=== PATIENT | male | born 1985 | race Caucasian/White ===

== ENCOUNTER 2024-11-15 01:07 | Emergency (ER) | payer OTHER, SELFPAY ==
--- NOTE | ~2024-11-15 | XR_ITS ---
CLINICAL HISTORY: fall pain 3 views lumbar spine Comparison: None Findings: Normal alignment. Can not exclude mild likely chronic compression deformities at the superior endplates of L2 and L3 No significant degenerative change. IMPRESSION: Can not exclude mild likely chronic compression deformities at the superior endplates of L2 and L3 This document has been electronically signed by: Deshaun Grant MD on 11/15/2024 05:49:35
[2024-11-15 01:24] VITALS: BP 163/113; PULSE 99; RESP 20; TEMP 37.1; O2SAT 99; BMI 28.7
--- NOTE | 2024-11-15 07:18 | ED_ITS ---
HPI - Back Pain/Injury General Chief Complaint: Back Pain/Injury Stated Complaint: hurt at work Time Seen by Provider: 11/15/24 07:03 Source: patient and translator interpreter (declined wanted to use pen and paper) Mode of arrival: ambulatory Limitations: no limitations History of Present Illness ED Provider: KERRI RUIZ Narrative: 38 yo male hearing impairment uses ASL - not on blood thinners here with c/o trip and fall fell down a few stairs landing on lower back. No LOC and no numbness, weakness, saddle anesthesia, no loss of control of bowel or bladder. Patient has injury just to lower back. Did get abrasion on dorsum of R hand. 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: back injury Onset (ago): hour(s) (several) Timing: constant Severity: moderate Similar Symptoms Previously: No Quality: aching Location: lumbar spine Radiation: none Exacerbating factors: movement Relieving factors: immobilization Context: fall Associated symptoms: denies other symptoms Work related injury: Yes Related Data Previous Rx's ?Medication ?Instructions ?Recorded diazepam 5 mg tablet (Valium) 5 mg PO TID PRN muscle spasm #10 11/15/24 tabs ibuprofen 600 mg tablet 600 mg PO Q6H PRN pain #30 tabs 11/15/24 lidocaine 5 % topical patch 1 patch topical DAILY #30 ea 11/15/24 Allergies Allergy/AdvReac Type Severity Reaction Status Date / Time No Known Allergies Allergy Verified 11/15/24 01:31 [No Known Allergies*] Review of Systems Review of Systems: Constitutional : No Weight loss, No Fever, No Chills, ENT/Mouth : No Hearing loss, No Ear Pain, No Nasal Congestion, No Sinus Pain, No Hoarseness, No sore throat, No Rhinorrhea, No Swallowing Difficulty Cardiovascular : No Chest Pain, No SOB Respiratory : No Cough, No Dyspnea Gastrointestinal : No Nausea, No Vomiting, No Diarrhea, No abdominal Pain, No Hematochezia, No Melena Genitourinary : No Dysuria, No Urinary Frequency, No Hematuria, No Urinary Incontinence, Musculoskeletal : positive back pain Skin : No Skin Lesions, No rash Neuro : No Weakness, No Numbness, No Paresthesias, no loss of bowel or bladder incontinence, no saddle anesthesia all other systems reviewed and are negative PMFSH Past Medical History Attestation statement: The following information was validated with the patient. Source: old records reviewed Medical History (Updated 11/15/24 @ 07:50 by Ariana Mack DO) No pertinent past medical history Social History Social History (Updated 11/15/24 @ 07:50 by Ariana Mack DO) Patient Tobacco Use Status: Tobacco use Unknown Physical Exam Vital Signs: Vital Signs: Last Vital Signs Temp 98.8 F 11/15/24 01:24 Pulse 99 11/15/24 01:24 Resp 20 11/15/24 01:24 BP 163/113 H 11/15/24 01:24 Pulse Ox 99 11/15/24 01:24 O2 Del Method Room Air 11/15/24 01:24 BMI result Body Mass Index 28.7 Appearance: Alert. Oriented X3. No acute distress. Eyes: Pupils equal, round and reactive to light. ENT: Pharynx normal. Neck: Normal inspection. Neck supple. CVS: Normal heart rate and rhythm. Pulses normal. Respiratory: No respiratory distress. Breath sounds normal. Abdomen: Soft and nontender. Back: ttp along R and L lower paraspinals there is no contusion or step off and no signs of external trauma Skin: Skin warm and dry. Normal skin color. Normal skin turgor. Extremities: No lower extremity edema. No calf ttp R hand on dorsum very small superficial abrasion normal ROM Neuro: Oriented X 3. No motor deficit. No sensory deficit. CN2-12 intact able to ambulate slight limp but otherwise NV intact on exam Medical Decision Making Medical Decision Making MDM Narrative: 38 yo male with PMH of hearing impairment now with fall down stairs hitting low back he has no cauda equina symptoms he has no head strike or LOC. He has no concerning features on exam. At this time lumbar film ordered and discussion to follow up with work connection. No other injuries noted. Differential Diagnosis Differential Diagnoses: The differential diagnosis associated with the presentation includes strain, contusion, abrasion, fracture Admission/Observation Consideration of admission/observation: Escalation of care including admission/observation considered able to walk stable for DC Independent Interpretation I performed an independent interpretation of an: Plain X-Ray (no acute fracture) Radiology Impression Discussion of test interpretation with radiology: I have reviewed the radiologist's reading. External Record Review External record reviewed: Outpatient record Prescription Management I considered prescription management with: Pain Medication and Other Discharge Plan Discharge Clinical Impression: Strain of lumbar region, Back contusion Patient Disposition: Home, Self-Care Instructions: Acute Low Back Pain (ED), Contusion in Adults (ED) Additional Instructions: return for numbness, weakness, loss of control of bowel or bladder avoid heavy lifting more than 10lbs for 2 weeks rest and stay hydrated follow up with work connection xray shows no broken bone but there are prior old compression fractures NOT NEW at lumbar L2/L3 Prescriptions: New lidocaine 5 % adhesive patch,medicated 1 patch topical DAILY Qty: 30 0RF Rx Instructions: leave on most painful area for up to 12 hrs ibuprofen 600 mg tablet 600 mg PO Q6H PRN (Reason: pain) Qty: 30 0RF diazepam [Valium] 5 mg tablet 5 mg PO TID PRN (Reason: muscle spasm) Qty: 10 0RF Rx Instructions: partial fill is okay Referrals: [facility] [Provider Group] (call to schedule appointment) Stand Alone Forms: Work/School Release Print Language: Bahamian Sign Language
[2024-11-15 07:36] VITALS: BP 163/113; PULSE 99; RESP 20; TEMP 37.1; O2SAT 99
== END 2024-11-15 07:42 | disposition home or self-care (01) ==
LOC: HO.ED 07:39
PROVIDERS: Emergency Provider Emergency Medicine
DX: S39.012A Strain of muscle, fascia and tendon of lower back, initial encounter (principal); S30.0XXA Contusion of lower back and pelvis, initial encounter; W10.9XXA Fall (on) (from) unspecified stairs and steps, initial encounter; Y93.9 Activity, unspecified; Y92.9 Unspecified place or not applicable; Y99.8 Other external cause status
CPT/HCPCS: 72100; 99282; 99283

== ENCOUNTER → 2024-11-15 05:05 | Outpatient (BNV) | payer SELFPAY | PROVIDERS: Visit Provider Radiology Diagnostic Radiology | DX: S32.000A Wedge compression fracture of unspecified lumbar vertebra, initial encounter for closed fracture (principal) | CPT/HCPCS: 72100 ==

== ENCOUNTER → 2024-11-23 09:40 | Outpatient (BNVA) | payer OTHER, SELFPAY | PROVIDERS: Visit Provider Physician Assistant Medical | DX: S39.012A Strain of muscle, fascia and tendon of lower back, initial encounter (principal); W01.0XXA Fall on same level from slipping, tripping and stumbling without subsequent striking against object, initial encounter; M54.16 Radiculopathy, lumbar region | CPT/HCPCS: 99203 ==

== ENCOUNTER → 2024-11-27 10:02 | Outpatient (BNVA) | payer OTHER, SELFPAY | PROVIDERS: Visit Provider Physician Assistant Medical | DX: S39.012A Strain of muscle, fascia and tendon of lower back, initial encounter (principal); W01.0XXD Fall on same level from slipping, tripping and stumbling without subsequent striking against object, subsequent encounter; H91.90 Unspecified hearing loss, unspecified ear; M54.16 Radiculopathy, lumbar region | CPT/HCPCS: 99213 ==

== ENCOUNTER → 2024-12-07 11:02 | Outpatient (BNVA) | payer OTHER, SELFPAY | PROVIDERS: Visit Provider Physician Assistant Medical | DX: S39.012D Strain of muscle, fascia and tendon of lower back, subsequent encounter (principal); W01.0XXD Fall on same level from slipping, tripping and stumbling without subsequent striking against object, subsequent encounter; M48.56XA Collapsed vertebra, not elsewhere classified, lumbar region, initial encounter for fracture | CPT/HCPCS: 99213 ==

== ENCOUNTER → 2024-12-15 15:17 | Outpatient (BNVA) | payer OTHER, SELFPAY | PROVIDERS: Visit Provider Physician Assistant Medical | DX: S39.012D Strain of muscle, fascia and tendon of lower back, subsequent encounter (principal); W01.0XXD Fall on same level from slipping, tripping and stumbling without subsequent striking against object, subsequent encounter; M51.17 Intervertebral disc disorders with radiculopathy, lumbosacral region | CPT/HCPCS: 99213 ==

== ENCOUNTER → 2024-12-29 13:08 | Outpatient (BNVA) | payer OTHER, SELFPAY | PROVIDERS: Visit Provider Physician Assistant Medical | DX: S39.012D Strain of muscle, fascia and tendon of lower back, subsequent encounter (principal); W01.0XXD Fall on same level from slipping, tripping and stumbling without subsequent striking against object, subsequent encounter; M51.17 Intervertebral disc disorders with radiculopathy, lumbosacral region | CPT/HCPCS: 99213 ==

== ENCOUNTER 2025-01-09 14:32 | Outpatient (AMB) | payer OTHER, SELFPAY ==
--- NOTE | 2025-01-09 14:34 | MHC.OFFVIS ---
Vital Signs 01/09/25 14:44 Height 5 ft 10 in Weight 221 lb 6 oz BMI 31.8 BP 180/98 H Blood Pressure Location Lt brachial Position Sitting Pulse 114 H Pulse Source Pulse Oximeter Pulse Oximetry (%) 99 Oxygen Delivery Method Room Air Intake Visit Reasons: WC Back Injury Intake Note: Pain today 5/10 Business Travel Consultant Required: Yes Business Travel Consultant Language: Hairspring Ii Inspector Services: Business Travel Consultant Present Business Travel Consultant Name: [id number] Gutierrez Information Interpreted: non-clinical & clinical Allergies No Known Allergies [No Known Allergies*] Allergy (Verified 01/09/25 14:41) HPI HPI WC Back Injury: Details: The patient is a pleasant 39-year-old male presenting with back pain related to a work injury. He described that he slipped and fell on the stairs on 11/14/24, landing on his back. Initially, he experienced a sensation aviva to an electric shock from his neck down to his ankle, with severe nausea. The initial throbbing pain transformed into recurring electric shock sensations in the lower back and along the right leg. The pain now radiates down the right lateral and posterior thigh, halting before reaching the knee, coupled with a substantial pressure feeling and imbalance. Rising from a bent position significantly worsens the pain. Pain at rest 5/10 and intensifies to 9-10/10 with activities or certain movements. The patient continues to experience unsteady walking and reports worsened symptoms during activities or caring for his family and young children. He reports doing laundry which exacerbates involuntary right leg shaking and reproduces severe right sided low back pain. Physical therapy provided minimal improvement in muscle relaxation but has not mitigated the pain. He reports numbness to right buttock, lateral hip and posterior thigh with reduced sensitivity on the right side of his body. Activity exacerbations persist with no pain relief from ibuprofen or heat therapy. He completed lumbar spine MRI at [facility], [place]. Per referral notes, recent lumbar MRI showed right paracentral L5-S1 disc extrusion 8 mm displacing transiting right nerve roots. Denies previous spine surgery or injections. - Onset & Timing: Began 11/14/24, following a fall on his back at work. - Quality & Character: Initially throbbing, now like electric shock like, pressure, swelling, shooting sensations. - Primary Location: Lower back, extending to the right hip and thigh on the right side. - Radiation: Shoots down right lateral thigh, up to neck and lower head. - Exacerbating Factors: Rising from a bent position, performing household tasks, walking, prolonged walking, lifting, twisting, bending - Relieving Factors: None noted; heat, Ibuprofen, lidocaine patches slightly aid sleep. 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 - Affect: Pain affects mood and psychological well-being and sleep quality. - Analgesia: Current pain treated with heat and ibuprofen; lidocaine patches aid in sleep; physical therapy ongoing with limited relief of pain. - Adverse Effects: Concern about excessive ibuprofen intake impacting health. Avoids muscle relaxants due to drowsiness effect. - Activities of Daily Living: Pain inhibits lifting heavy objects; affected functional capacity evident. - Aberrant Drug Related Behaviors: No indicated misuse of medication. [facility] Medical History (Updated 01/09/25 @ 15:52 by SUDHA Uribe) Lumbar degenerative disc disease Rib fractures Hydronephrosis of left kidney Left renal stone Surgical History (Updated 01/09/25 @ 15:50 by SUDHA Uribe) H/O shoulder surgery (05/02/14) Social History Alcohol intake: never e-Cigarette/Vaping Use: Currently Using Frequency of e-Cigarette/Vaping Use: daily Use of substances other than those prescribed or required for medical reasons: No Review of Systems Const Details: - Musculoskeletal: Reports lower back pain, leg shaking, sensitivity reduction on the right side. - Neurological: Denies bladder or bowel dysfunction or saddle anesthesia; reports numbness and reduced sensitivity on the right leg. All systems reviewed & are unremarkable except as noted in HPI and below Physical Exam Vital Signs: Last Vital Signs Pulse 114 H 01/09/25 14:44 BP 180/98 H 01/09/25 14:44 Pulse Ox 99 01/09/25 14:44 Oxygen Delivery Method Room Air 01/09/25 14:44 BMI result Body Mass Index 31.8 General: Appears afebrile. Moderate discomfort due to back and right leg pain. Alert and oriented. Mood and affect appropriate. Follows and participates in conversation appropriately. Respiratory effort is unlabored. No cough. Able to transition from sit to stand unassisted. Ambulates with bilaterally normal heel strike and toe off, increased pain with right heel and toe standing. General: Yes no CVA tenderness Back/Spine/Pelvis Other: Limited lumnar ROM due to pain. Difficulty returning to neutral position after bending down or flexing forward due to increased pain. Mildly antalgic gait, no limping. Demonstrates 5/5 left and 4.5/5 right strength of quadriceps bilaterally as well as flexion/dorsiflexion of bilateral feet against resistance. 2+ pedal pulses bilaterally. Straight leg rise with dorsiflexion positive on the right. +2 patellar and +1 right +2 left achilles reflexes bilaterally. Decreased sensation to right lateral and anterior thigh with light touch. Facet loading test positive bilaterally. Laci?s, Pelvic compression and Stinchfield tests are positive on the right. No groin pain with I/E hip rotations. Significant paraspinals tenderness mostly on the right mid and lower back. Valsalva maneuver is positive. Back: no CVA tenderness Cervical Spine: cervical ROM normal, cervical muscular tenderness and No Cervical spine tenderness Thoracic/Lumbar Spine: thoracic and lumbar spine normal to inspection, No Thoracic/lumbar spine scar(s), Lasegue's sign positive on the right and localized, pain with thoraco-lumbar ROM, paraspinal muscle tenderness on the right greater than left, thoraco-lumbar ROM limited, No thoracic spinal tenderness, lumbar spinal tenderness (L4-S1) and straight leg raise positive right at 40 degrees Pelvis: buttock tenderness on the right Sacroiliac joints: on the right tender to palpation and on the left nontender Extrem General: Yes capillary refill normal, Yes no clubbing, cyanosis or edema and Yes no calf tenderness Results Reviewed Results Reviewed: XR lumbar spine 2-3V 11/15/24 CLINICAL HISTORY: fall pain 3 views lumbar spine Comparison: None Findings: Normal alignment. Can not exclude mild likely chronic compression deformities at the superior endplates of L2 and L3 No significant degenerative change. IMPRESSION: Can not exclude mild likely chronic compression deformities at the superior endplates of L2 and L3. Assessment & Plan Assessment & Plan (1) Work related injury: Code(s): Y99.0 - Civilian activity done for income or pay Category: Medical (2) Right lumbar radiculopathy: Code(s): M54.16 - Radiculopathy, lumbar region Category: Medical (3) Lumbar disc herniation with radiculopathy: Code(s): M51.16 - Intervertebral disc disorders with radiculopathy, lumbar region Category: Medical (4) Acute bilateral low back pain with right-sided sciatica: Code(s): M54.41 - Lumbago with sciatica, right side Category: Medical (5) Lumbar degenerative disc disease: Code(s): M51.369 - Other intervertebral disc degeneration, lumbar region without mention of lumbar back pain or lower extremity pain Category: Medical Plan We will obtain MRI imaging from [facility] and proceed with an epidural steroid injection to provide relief, with potential symptom management, possibly repeating the injection if needed. Patient prefers to avoid back surgery but is open to Neurosurgical evaluation if minimal improvement with JUSTINO. Activity modification is crucial to avoid exacerbating pain, with recommendations against lifting, twisting, or bending. If relief from the injection is insufficient, referral to a Neurosurgeon for further options is planned, although conservative management remains prioritized. Schedule Right L5-S1 TFESI with local and fluoroscopy. Expectations, risks and benefits were reviewed. Patient is aware he will be contacted to schedule this procedure. The patient will maintain current pain management with ibuprofen and lidocaine patches, monitoring for worsening symptoms. Patient is aware to call if pain worsens or if he develops any red flag symptoms to seek emergency care. Patient denies any cauda equina syndrome symptoms at this time. All questions and concerns have been answered and patient agreed with the plan. Follow up after injection and sooner as needed. Patient was informed and verbally consented to the use of an ambient scribe for clinic note documentation during this visit. Patient Instructions: I discussed with the patient probable relief measures and advised on an epidural steroid injection, which may relieve symptoms for 3 months and, if repeated, could further extend relief. Patient is hesitant towards surgical intervention and prefers to continue conservative management. I highlighted the potential for natural resolution of a disc herniation, with the body's capability for healing emphasized. I reviewed the need for activity moderation and avoiding pain producing activities. Follow-up might include a Neurosurgeon referral if non-surgical management fails to yield expected relief. Ibuprofen use will continue, with precautions on excessive use. The patient understood and agreed to the plan this outlined course. - Avoid lifting, twisting, or bending activities that may trigger pain. - Continue use of ibuprofen and lidocaine patches as outlined. - Await approval from insurance for an epidural steroid injection. - Monitor for any new symptoms, such as weakness in the right leg or difficulty controlling bowels or bladder, and seek immediate care if these develop. - Consider revisiting physical therapy exercises aimed at muscle relaxation. - Prepare for potential follow-up with a Neurosurgeon for further assessment if needed in the future. Coding Level of Care Code New Pt Level 4 (72941) Diagnoses Work related injury Y99.0 Right lumbar radiculopathy M54.16 Lumbar disc herniation with radiculopathy M51.16 Acute bilateral low back pain with right-sided sciatica M54.41 Lumbar degenerative disc disease M51.369
[2025-01-09 14:44] VITALS: BP 180/98; PULSE 114; O2SAT 99; BMI 31.8
== END 2025-01-09 15:36 | disposition home or self-care (01) ==
LOC: HO.PMC 14:32
PROVIDERS: Visit Provider Nurse Practitioner Family
DX: M51.16 Intervertebral disc disorders with radiculopathy, lumbar region (principal); Y99.0 Civilian activity done for income or pay
CPT/HCPCS: 99204

== ENCOUNTER → 2025-01-09 14:32 | Outpatient (BNVA) | payer OTHER, SELFPAY | PROVIDERS: Visit Provider Nurse Practitioner Family | DX: M51.16 Intervertebral disc disorders with radiculopathy, lumbar region (principal); M54.41 Lumbago with sciatica, right side; M51.369 Other intervertebral disc degeneration, lumbar region without mention of lumbar back pain or lower extremity pain | CPT/HCPCS: 99202 ==

== ENCOUNTER → 2025-01-12 13:17 | Outpatient (BNVA) | payer OTHER, SELFPAY | PROVIDERS: Visit Provider Physician Assistant Medical | DX: S39.012D Strain of muscle, fascia and tendon of lower back, subsequent encounter (principal); W01.0XXD Fall on same level from slipping, tripping and stumbling without subsequent striking against object, subsequent encounter; M54.16 Radiculopathy, lumbar region; M51.27 Other intervertebral disc displacement, lumbosacral region | CPT/HCPCS: 99213 ==

== ENCOUNTER 2025-01-24 11:00 | Outpatient (RCR) | payer OTHER, SELFPAY ==
--- NOTE | 2024-12-06 08:56 | MHC.PT.EP ---
[facility] [place] Office [place] Office [place] Office [address] Jg Gorman [address] [phone] F: [phone] F: [phone] F: [phone] F: [phone] Physical Therapy Plan of Care Date of Evaluation: 12/06/24 Date of Surgery: Diagnosis: R lumbar strain, radiculopathy Assessment: Patient is a 38 year old R handed male who presents with s/s consistent with R lumbar strain - radiculopathy, low back pain. 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 Does not lift too often. Patient past medical history includes asthma, shoulder surgery and back pain. Current impairments include pain, posture, ROM, flexibility, strength, activity tolerance and functional mobility. Functional limitations include decreased ability to stand, bend, sit, lift, transfer, carry, and sleep. Patient is motivated with good rehab potential. Skilled PT will address impairments and functional limitations in order to achieve goals. Frequency and Duration: The patient will be seen 2x/week for 5 weeks. Short Term Goals: I with HEP -2 weeks AROM rotation 75% and pain free - 3 weeks AROM flex and ext 75% and pain free - 3 weeks s/s centralized - 3 weeks Cloth Bolt Bander Goals: Pain free return to work - 5 weeks Oswestry 16% or less - 5 weeks Pain free return to ADLs - 5 weeks 90/90 lacking 20 or less - 5 weeks Undisturbed sleep - 5 weeks Treatment Plan: Modalities to reduce pain, spasms and effusion. Manual therapy to restore motion and function. Therapeutic exercise to improve strength and flexibility. Neuromuscular re-education for posture and balance. Therapeutic activities to return to functional activities of daily living. Electronically signed by: Peter Orozco, PT Please sign and return to therapist. Thank you for your referral.
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
== END 2025-02-22 13:52 | disposition home or self-care (01) ==
LOC: HO.PTCHIC 11:00
PROVIDERS: Visit Provider Physician Assistant Medical
DX: M54.16 Radiculopathy, lumbar region (principal); S39.012D Strain of muscle, fascia and tendon of lower back, subsequent encounter
CPT/HCPCS: 97014; 97110; 97140; 97162

== ENCOUNTER 2025-01-31 12:12 | Emergency (ER) | payer OTHER, SELFPAY ==
--- NOTE | ~2025-01-31 | CT_ITS ---
EXAMINATION: CT LUMBAR SPINE WITHOUT CONTRAST CLINICAL INFORMATION: Right low back pain. COMPARISON: Correlated to x-ray dated November 15, 2024 and MRI dated August 26, 2010. TECHNIQUE: Contiguous axial images through the lumbar spine using 2 mm collimation with bone and soft tissue algorithm. Sagittal and coronal reformatted images acquired using bone algorithm only. This CT examination was performed using dose optimization techniques as appropriate, variously including the following: *Automated exposure control *Adjustment of mA and/or kV according to patient size (this includes techniques or standardized protocols for targeted exams where dose is matched to indication/reason for exam; i.e. extremities or head) *Use of iterative reconstruction technique DLP: 489 mGy centimeter. FINDINGS: Last rib-bearing vertebra labeled T12. The examination is limited for the soft tissue component centered in the neural elements. There is a superior endplate compression deformity with a Schmorl node at the vertebral body of L3. No acute cortical disruption. No gross malalignment. There is facet joint hypertrophy at L4-5 and L5-S1. There is no lysis of the pars interarticularis. There is sclerosis in the right pars interarticularis L5. No gross prevertebral compartment hematoma, masses or fluid collections. T12-L1: No gross central spinal canal stenosis. L1-2: No gross central spinal canal stenosis. L2-3: Broad-based disc bulging. Ligamentum flavum hypertrophy. L3-4: Broad-based disc bulging. Ligamentum flavum hypertrophy. Reduced AP diameter of the central spinal canal. L4-5: Broad-based disc bulging. Ligamentum flavum hypertrophy. Central spinal canal stenosis and likely bilateral neuroforamina stenosis. L5-S1: Right-sided broad-based disc bulging versus disc herniation extending into the right foramen, likely compressing the right S1 and right L5 nerve roots. The abdominal aorta demonstrates normal diameter. No gross hydronephrosis in either kidney. CT/CT lumbar spine wo IV con IMPRESSION: Broad-based right subarticular and foraminal disc herniation, L5-S1 compressing the right S1 and right L5 nerve root. Multilevel lumbar spondylosis L2-3 to L4-5. Electronically signed by: Archie Bull MD 01/31/2025 01:22 PM EDT
--- NOTE | 2025-01-31 12:25 | ED_ITS ---
HPI - General Adult General Chief complaint: General Medical Stated complaint: Work injury Time Seen by Provider: 01/31/25 13:31 Source: patient and spanish interpreter/translator (all interactions with this patient were facilitated with an [facility] approved historic interpreter) Mode of arrival: ambulatory Limitations: language barrier (all interactions with this patient were facilitated with an [facility] approved historic interpreter) History of Present Illness ED Provider: Julia Garibay PA-C HPI narrative: Patient is a 39 year old assigned male at with a history of being deaf and a lumbar disc herniation s/p a work injury in November of 2024 presenting to the emergency department today with right heel pain. Patient states that in November of this year he got injured while at work and is following up with the pain management team for that. However, a couple days ago he started having pain in his right heel when he steps on it. Patient states that the pain in his heel does not come from his back but rather starts in the heel. Patient states that he told his doctor about this and given the history of his recent back injury - he was told to come to the ER to be evaluated. Patient denies any bladder or bowel retention. Patient denies any dizziness, lightheadedness, abdominal pain, nausea, vomiting, fever, chills, blurry vision, double vision, loss of vision, chest pain, difficulty breathing, shortness of breath, back pain, night sweats, pain with urination, increased urinary frequency, increased urinary urgency, blood in his urine or stool, syncope or a near syncopal episode, bowel incontinence, bladder incontinence, or any other complaints at this time. Onset (ago): day(s) Location: right (heel) Relieving factors: none Exacerbating factors: none Associated symptoms: denies other symptoms Treatments prior to arrival: none Related Data Previous Rx's ?Medication ?Instructions ?Recorded lidocaine 5 % topical patch 1 patch topical DAILY #30 ea 11/15/24 gabapentin 100 mg capsule 200 mg (2 x 100 mg) PO BEDTIME #30 01/12/25 caps Allergies Allergy/AdvReac Type Severity Reaction Status Date / Time No Known Allergies Allergy Verified 01/31/25 12:30 [No Known Allergies*] Review of Systems Constitutional: Constitutional: Reports no additional constitutional complaints, Denies chills, Denies fever(s) and Denies night sweats Eyes: Eyes: Reports no additional eye complaints, Denies blurry vision, Denies change in vision, Denies diplopia, Denies eye discharge, Denies loss of vision and Denies eye pain ENT: Denies dizziness and Reports hearing loss (patient is deaf at baseline) Cardiovascular: Cardiovascular: Reports no additional cardiovascular complaints, Denies chest pain, Denies lightheadedness, Denies Loss of Consciousness and Denies dyspnea Respiratory: Respiratory: Reports no additional respiratory complaints and Denies dyspnea Gastrointestinal: Gastrointestinal: Reports no additional gastrointestinal complaints, Denies abdominal pain, Denies melena, Denies hematochezia, Denies change in bowel habits and Denies change in stool character Genitourinary: Genitourinary: Reports no additional male genitourinary complaints, Denies hematuria, Denies oliguria, Denies difficulty urinating, Denies dysuria, Denies urinary frequency, Denies urinary hesitancy, Denies urinary incontinence and Denies urinary urgency Musculoskeletal: Musculoskeletal: Reports no additional musculoskeletal complaints, Denies numbness and Denies tingling Comments: right heel pain Neurologic: Denies dizziness, Denies loss of vision, Denies numbness and Denies tingling Psychiatric: Psychiatric: Reports no additional psychiatric complaints Endocrine: Endocrine: Reports no additional endocrine complaints Hematologic/Lymphatic: Hematologic/Lymphatic: Reports no additional hematologic/lymphatic complaints Allergic/Immunologic: Allergic/Immunologic: Reports no additional allergic/immunologic complaints [facility] Past Medical History Attestation statement: The following information was validated with the patient. Source: old records reviewed and nursing notes reviewed Medical History Lumbar degenerative disc disease Rib fractures Hydronephrosis of left kidney Left renal stone Surgical History H/O shoulder surgery (05/02/14) Social History Social History Unable to assess alcohol history related to: Unknown Alcohol intake: never Smoked in Last 30 Days: Yes e-Cigarette/Vaping Use: Currently Using Use of substances other than those prescribed or required for medical reasons: No Advance Directives: No Advance Directives Information Provided: Yes Do you have a plan to hurt others: No Plan Physical Exam ED Vital Signs: Vital Signs - 24 hr 01/31/25 12:28 01/31/25 13:44 01/31/25 14:19 Temperature 98 F 0 F L Pulse Rate 94 97 97 Respiratory Rate 18 16 16 Blood Pressure 145/85 H 150/98 H 150/98 H Pulse Oximetry 95 95 95 Oxygen Delivery Method Room Air Room Air BMI result Body Mass Index 30.4 Const General: cooperative, no acute distress, alert and awake Nutritional Appearance: well nourished Orientation/consciousness: patient oriented x3 HENMT Head: Yes normal to inspection and Yes atraumatic Ears: external ears normal and other (patient deaf at baseline) General nose exam: Normal external nose present, no nasal discharge noted and no epistaxis Face and sinus: Yes normal facial exam, No abrasion and No laceration Mouth: Normal oral and palatal mucosa present, no drooling and no muffled voice Eyes General: appearance normal, both eyes and all related structures Periorbital: periorbital findings normal Eyelids: Yes eyelids normal Conjunctivae: conjunctivae normal Pupils: Equal, round and reactive pupils present EOM: EOMs intact bilaterally Neck Neck: Yes normal visual inspection, Yes full ROM and Yes no lymphadenopathy Resp Effort & Inspection: normal respiratory effort and able to speak in complete sentences Neuro General: patient oriented x3, moves all extremities and CN's II-XI intact bilaterally Cranial nerves: Yes Equal, round and reactive pupils present Cognition (Neuro): normal cognition Extrem General: Yes normal to inspection, Yes full ROM and Yes capillary refill normal Psych Appearance: grossly normal Mental Status: mental status grossly normal Affect: normal affect Attitude: cooperative Thought process: Normal thought process present Thought content: Normal thought content present Insight: Good insight present (Psych) Course Course Course Narrative: This is a Rapid Medical Examination (RME) performed by Ismael Martinez PA-C in triage. Full HPI, ROS, assessment and treatment plan per primary provider in the Main ED. 01/31/25 1228 RUTHANN Lagunas Hx: 38 yo male here for eval of low back pain s/p fall at work in November. now having worsening pain to low back, traveling down right leg. reports tingling down RLE into heel. pain worse w/ ambulating. reports increased urinary freq. has not had BM in a few days. no hx IVDU. No hx of spinal surgery. PE/vitals: + decreased sensation to light touch noted to right lower leg when compared to left lower leg. ambulating w/ steady gait. Plan: lumbar ct Medical Decision Making Medical Decision Making MDM Narrative: Patient is a 39 year old assigned male at with a history of being deaf and a lumbar disc herniation s/p a work injury in November of 2024 presenting to the emergency department today with right heel pain. Patient's physical exam was as noted in the physical exam portion of this note and consistent with his baseline. Patient's CT of the lumbar spine ordered by the provider in triage, showed broad-based right subarticular and foraminal disc herniation L5-S1 compressing the right S1 and right L5 nerve root. I explained my physical exam findings as well as all test results to the patient. I answered all questions asked by the patient. Patient stated that he was aware of the nerve compression secondary to his previous injury and that is what he is following with the pain clinic for. Given the patient's pain is coming from his right heel when he steps - his clinical presentation is most consistent with plantar fasciitis. I offered the patient toradol for his pain and he declined stating he would take OTC Ibuprofen. I stressed the importance of the patient taking his medication as directed (either prescribed or as the over the counter packaging recommends). I stressed the importance of the patient following up with his primary care provider and with his pain specialist. I stressed the importance of the patient returning to the emergency department immediately if his symptoms were to worsen or if he were to develop any dizziness, shortness of breath, difficulty breath ing, chest pain, blurry vision, loss of vision, nausea, vomiting, abdominal pain, fever, chills, back pain, or any other complaints. Patient verbalized (via historic interpreter) agreement and understanding with this treatment plan and discharge. Differential Diagnosis Differential Diagnoses: The differential diagnosis associated with the pre sentation includes Plantar fasciitis Admission/Observation Consideration of admission/observation: Escalation of care including admission/observation considered Patient would have been admitted to the hospital had his work up had any findings where hospital admission was appropriate and his clinical presentation warranted hospital admission. Independent Interpretation I performed an independent interpretation of an: CT Scan Interpretation: My interpretation is in agreement with the radiologist's impression of this imaging study. Report Number: [id number]: Total DLP = 489.00 mGy-cm EXAMINATION: CT LUMBAR SPINE WITHOUT CONTRAST CLINICAL INFORMATION: Right low back pain. COMPARISON: Correlated to x-ray dated November 15, 2024 and MRI dated August 26, 2010. TECHNIQUE: Contiguous axial images through the lumbar spine using 2 mm collimation with bone and soft tissue algorithm. Sagittal and coronal reformatted images acquired using bone algorithm only. This CT examination was performed using dose optimization techniques as appropriate, variously including the following: *Automated exposure control *Adjustment of mA and/or kV according to patient size (this includes techniques or standardized protocols for targeted exams where dose is matched to indication/reason for exam; i.e. extremities or head) *Use of iterative reconstruction technique DLP: 489 mGy centimeter. FINDINGS: Last rib-bearing vertebra labeled T12. The examination is limited for the soft tissue component centered in the neural elements. There is a superior endplate compression deformity with a Schmorl node at the vertebral body of L3. No acute cortical disruption. No gross malalignment. There is facet joint hypertrophy at L4-5 and L5-S1. There is no lysis of the pars interarticularis. There is sclerosis in the right pars interarticularis L5. No gross prevertebral compartment hematoma, masses or fluid collections. T12-L1: No gross central spinal canal stenosis. L1-2: No gross central spinal canal stenosis. L2-3: Broad-based disc bulging. Ligamentum flavum hypertrophy. L3-4: Broad-based disc bulging. Ligamentum flavum hypertrophy. Reduced AP diameter of the central spinal canal. L4-5: Broad-based disc bulging. Ligamentum flavum hypertrophy. Central spinal canal stenosis and likely bilateral neuroforamina stenosis. L5-S1: Right-sided broad-based disc bulging versus disc herniation extending into the right foramen, likely compressing the right S1 and right L5 nerve roots. The abdominal aorta demonstrates normal diameter. No gross hydronephrosis in either kidney. CT/CT lumbar spine wo IV con IMPRESSION: Broad-based right subarticular and foraminal disc herniation, L5-S1 compressing the right S1 and right L5 nerve root. Multilevel lumbar spondylosis L2-3 to L4-5. Electronically signed by: Archie Bull MD 01/31/2025 01:22 PM EDT Dictated By: Archie Carias MD Signed By: Electronically signed by Archie Chavira MD 01/31/25 1327 Radiology Impression Discussion of test interpretation with radiology: I have reviewed the radiologist's reading. Discharge Plan Discharge Clinical Impression: Plantar fasciitis, Lumbar disc herniation Patient Disposition: Home, Self-Care Instructions: Plantar Fasciitis (ED), Plantar Fasciitis Exercises (ED) Additional Instructions: Your clinical presentation today is most consistent with right plantar fasciitis. Follow up with your primary care provider, the pain clinic (for your back shot as scheduled), and the orthopedic team. Return to the emergency department immediately if your symptoms worsen or if you develop any numbness, tingling, dizziness, shortness of breath, difficulty breathing, chest pain, blurry vision, loss of vision, nausea, vomiting, abdominal pain, fever, chills, back pain, or any other complaints. Please see the information below about our Patient Portal. If you are not yet enrolled in the [facility] Patient Portal, you will receive an enrollment email invitation following your visit to any [facility] setting. You may also self-enroll in the Patient Portal by visiting our website: [email or web address] The following information is required to access the Patient Portal: - Your [facility] Medical Record Number - Your personal home email address (must match what is in your electronic medical record, Registration staff can assist with this) - Name - Date of Capabilities of the Patient Portal: - Message some providers - View upcoming appointments - Access your health summary, medical history, and visit history - View current conditions and allergies - View procedure and lab results - View your medications, including guidelines, side effects, and precautions - Complete pre-appointment questionnaires requested by your provider - Ready summary reports of your office visits and procedures To access the Patient Portal Mobile Doris, follow these directions: - Search 8digits in the Doris Store or Google Play Store - Download the Doris - Search for [facility] - Enter your login/password Prescriptions: No Action lidocaine 5 % adhesive patch,medicated 1 patch topical DAILY Qty: 30 0RF Rx Instructions: leave on most painful area for up to 12 hrs gabapentin 100 mg capsule 200 mg PO BEDTIME Qty: 30 0RF Referrals: [facility] Family Medicine [Provider Group] (Call to establish and follow up with a primary care provider. If you already have a primary care provider, please follow up with them.) [facility] Primary Care, [facility] [Provider Group] (Call to establish and follow up with a primary care provider. If you already have a primary care provider, please follow up with them.) [facility] Primary Care, Ting [Provider Group] (Call to establish and follow up with a primary care provider. If you already have a primary care provider, please follow up with them.) [facility] Primary Care, [facility] [Provider Group] (Call to establish and follow up with a primary care provider. If you already have a primary care provider, please follow up with them.) [facility] [Provider Group] (Call to establish and follow up with a primary care provider. If you already have a primary care provider, please follow up with them.) [facility] [Provider Group] (Call to establish and follow up with the orthopedic team about your right sided plantar fasciitis. ) Interventions: ED Discharge Assessment Last Done: 01/31/25 14:19 Discharge Date/Time: 01/31/25 14:19 Print Language: [place]agu[place] Sign Language
[2025-01-31 12:28] VITALS: BP 145/85; PULSE 94; RESP 18; TEMP 36.6; O2SAT 95; BMI 30.4
[2025-01-31 13:44] VITALS: BP 150/98; PULSE 97; RESP 16; O2SAT 95
[2025-01-31 14:19] VITALS: BP 150/98; PULSE 97; RESP 16; TEMP -17.7; TEMP 0; O2SAT 95
== END 2025-01-31 14:19 | disposition home or self-care (01) ==
LOC: HO.ED 13:51
PROVIDERS: Emergency Provider Emergency Medicine
DX: M72.2 Plantar fascial fibromatosis (principal); M51.26 Other intervertebral disc displacement, lumbar region; M79.671 Pain in right foot
CPT/HCPCS: 72131; 99284

== ENCOUNTER → 2025-01-31 12:33 | Outpatient (BNV) | payer OTHER, SELFPAY | PROVIDERS: Emergency Provider Emergency Medicine; Visit Provider Radiology Diagnostic Radiology | DX: M51.27 Other intervertebral disc displacement, lumbosacral region (principal); M47.816 Spondylosis without myelopathy or radiculopathy, lumbar region | CPT/HCPCS: 72131 ==

== ENCOUNTER → 2025-02-02 13:05 | Outpatient (BNVA) | payer OTHER, SELFPAY | PROVIDERS: Visit Provider Physician Assistant Medical | DX: S39.012D Strain of muscle, fascia and tendon of lower back, subsequent encounter (principal); M54.16 Radiculopathy, lumbar region; W01.0XXD Fall on same level from slipping, tripping and stumbling without subsequent striking against object, subsequent encounter; M51.26 Other intervertebral disc displacement, lumbar region | CPT/HCPCS: 99213 ==

== ENCOUNTER → 2025-02-22 13:52 | Outpatient (BNVA) | payer OTHER, SELFPAY | PROVIDERS: Visit Provider Physician Assistant Medical | DX: S39.012D Strain of muscle, fascia and tendon of lower back, subsequent encounter (principal); M51.17 Intervertebral disc disorders with radiculopathy, lumbosacral region; W01.0XXD Fall on same level from slipping, tripping and stumbling without subsequent striking against object, subsequent encounter | CPT/HCPCS: 99213 ==

== ENCOUNTER → 2025-03-05 11:20 | Outpatient (BNVA) | payer OTHER, SELFPAY | PROVIDERS: Visit Provider Physician Assistant Medical | DX: S39.012D Strain of muscle, fascia and tendon of lower back, subsequent encounter (principal); W01.0XXD Fall on same level from slipping, tripping and stumbling without subsequent striking against object, subsequent encounter; M51.17 Intervertebral disc disorders with radiculopathy, lumbosacral region | CPT/HCPCS: 99213 ==

== ENCOUNTER → 2025-03-20 12:57 | Outpatient (BNVA) | payer OTHER, SELFPAY | PROVIDERS: Visit Provider Physician Assistant Medical | DX: M51.17 Intervertebral disc disorders with radiculopathy, lumbosacral region (principal) | CPT/HCPCS: 99213 ==

== ENCOUNTER 2025-03-27 06:25 | Outpatient (REF) | payer OTHER, SELFPAY ==
--- NOTE | ~2025-03-27 | FL_ITS ---
EXAMINATION: FL GUIDANCE ONLY HISTORY: M51.16 - Intervertebral disc disorders with radiculopathy, lumbar region COMPARISON: None available. TECHNIQUE: Fluoroscopy time: 0.4 minutes. Cumulative Dose: 7.58 mGy. DAP: 0.120 mGym2 Images: 2. FINDINGS: AP and lateral fluoroscopic spot films of the lumbar spine demonstrate a needle and contrast material in the region of the right L5-S1 facet joint. FL/FL guidance in treatment room IMPRESSION: Fluoroscopy during procedure. Please see procedure report for additional information. Electronically signed by: Surinder Castillo MD 03/27/2025 01:55 PM EDT
== END 2025-03-27 06:26 | disposition home or self-care (01) ==
LOC: CF 06:25
PROVIDERS: Visit Provider Anesthesiology
DX: M51.16 Intervertebral disc disorders with radiculopathy, lumbar region (principal)
CPT/HCPCS: 64483; J2003; J3301; Q9967

== ENCOUNTER 2025-03-27 12:55 | Outpatient (AMB) | payer OTHER, SELFPAY ==
--- NOTE | 2025-03-27 13:00 | MHC.OFFVIS ---
Vital Signs 03/27/25 13:10 03/27/25 14:00 BP 154/89 H 158/94 H Blood Pressure Location Lt radial Lt brachial Position Sitting Sitting Respiration 16 16 Pulse 93 90 Pulse Source Pulse Oximeter Pulse Oximeter Pulse Oximetry (%) 95 100 Oxygen Delivery Method Room Air Room Air Intake Visit Reasons: Right L5-S1 TFESI Allergies No Known Allergies (No Known Allergies*) Allergy (Verified 01/31/25 12:30) PFSH Medical History Lumbar degenerative disc disease Rib fractures Hydronephrosis of left kidney Left renal stone Surgical History H/O shoulder surgery (05/02/14) Social History Unable to assess alcohol history related to: Unknown Alcohol intake: never e-Cigarette/Vaping Use: Currently Using Physical Exam Vital Signs: Last Vital Signs Pulse 90 03/27/25 14:00 Resp 16 03/27/25 14:00 BP 158/94 H 03/27/25 14:00 Pulse Ox 100 03/27/25 14:00 Oxygen Delivery Method Room Air 03/27/25 14:00 Assessment & Plan Assessment & Plan (1) Right lumbar radiculopathy: Code(s): M54.16 - Radiculopathy, lumbar region Category: Medical Plan Transforaminal right L5-S1 epidural steroid injection . Informed consent was thoroughly explained to the patient before the procedure.? The patient came to the operating room.? She was positioned prone on operating table with a pillow under his abdomen.? Time-out was performed delineating correct site and side of the procedure, nature of the injection, name and date of of the patient. The lower back of the patient was prepped with ChloraPrep and draped with sterile utility towels.? C-arm was brought over the operating field and sq picture of L5 was demonstrated on the screen.? The right side was chosen as the side of the injection.? Tilting machine ipsilateral to the right at the level of L45 1st the most prominent picture of the right pedicle was obtained on the screen.? 3 mm below the level of the lowest point of the pedicle projection to the skin small amount of lidocaine 1% 3-4 cc was injected to anesthetize the skin.? After that 5 in 22 gauge Quincke point needle was inserted through the skin wheal and was advanced toward the L5-S1 foramina on anterior posterior , lateral and oblique views intermittently.? After needle passed by the lamina on the right side patient started to complain on pain going down the right lower extremity and into his great toe. We had an transit mechanic sign language in the room for patient expression of pain. The needle was removed and 2nd attempt was made to advance the needle in the appropriate direction to were the right superior articular process of S1. When tip of the needle gently contacted the bone the needle was deviated slightly lateral and advanced 3 mm in, after that it was deviated back medially and advanced behind the body of the facet joint and into the foramina. Injection of the contrast demonstrated epidural and perineural spread of the contrast. After that injection of the 3 cc of lidocaine 1% mixed with Kenalog 40 mg was performed into the needle. Upon completion of the injection needle was removed sterile Band-Aid was applied. Patient tolerated the procedure well. Orders: Orders FL guidance in treatment room Today M51.16 - Intervertebral disc disorders with radiculopathy, lumbar region Coding Level of Care Code Procedure Only Diagnoses Right lumbar radiculopathy M54.16
[2025-03-27 13:10] VITALS: BP 154/89; PULSE 93; RESP 16; O2SAT 95
[2025-03-27 14:00] VITALS: BP 158/94; PULSE 90; RESP 16; O2SAT 100
== END 2025-03-27 14:08 | disposition home or self-care (01) ==
LOC: HO.PMCPRC 12:55
PROVIDERS: Visit Provider Anesthesiology
DX: M54.16 Radiculopathy, lumbar region (principal)
CPT/HCPCS: 64483

== ENCOUNTER → 2025-04-09 11:29 | Outpatient (BNVA) | payer OTHER, SELFPAY | PROVIDERS: Visit Provider Physician Assistant Medical | DX: M51.17 Intervertebral disc disorders with radiculopathy, lumbosacral region (principal) | CPT/HCPCS: 99213 ==

== ENCOUNTER → 2025-04-26 11:02 | Outpatient (BNVA) | payer OTHER, SELFPAY | PROVIDERS: Visit Provider Physician Assistant Medical | DX: M54.16 Radiculopathy, lumbar region (principal); M51.27 Other intervertebral disc displacement, lumbosacral region; Z02.79 Encounter for issue of other medical certificate; L23.7 Allergic contact dermatitis due to plants, except food | CPT/HCPCS: 99202; 99213 ==